=== PATIENT | female | born 1985 | race Caucasian/White ===

== ENCOUNTER 2022-02-25 12:36 | Outpatient (REF) | payer BC, SELFPAY ==
[2022-02-25 14:13] LABS: Estimated Average Glucose 105 mg/dL; Hemoglobin A1c % 5.3 %
[2022-02-25 14:45] LABS: Alanine Aminotransferase 13 U/L (0-31); Albumin Level 4.1 g/dL (3.5-5.0); Alkaline Phosphatase 58 U/L (39-117); Anion Gap 14 (12-20); Aspartate Amino Transferase 13 U/L (5-31); Bilirubin Total 0.5 mg/dL (0.0-1.0); Blood Urea Nitrogen 10 mg/dL (9-16); Calcium 9.2 mg/dL (8.4-10.2); Carbon Dioxide 21 mmol/L (22-29); Chloride 107 mmol/L (96-108); Cholesterol 181 mg/dL; Estimated Glomerular Filt Rate > 60; Glucose Random 85 mg/dL (60-115); HDL Cholesterol 60 mg/dL; LDL Cholesterol Calculated 110 mg/dl; Sodium 138 mmol/L (135-145); Total Protein 6.4 g/dL (6.5-8.0); Triglycerides 56 mg/dL
[2022-02-25 14:57] LABS: TSH reflex Free T4 1.29 uIU/mL (0.32-4.0)
[2022-02-25 15:16] LABS: HCG Quantitative 20747 mIU/mL
[2022-02-27 03:43] LABS: LDL Cholesterol Direct 107 mg/dL (<100)
== END 2022-02-25 12:37 | disposition home or self-care (01) ==
LOC: HO.WFDLDS 12:36
PROVIDERS: Visit Provider Family Medicine
DX: Z00.00 Encounter for general adult medical examination without abnormal findings (principal); R73.01 Impaired fasting glucose; Z86.32 Personal history of gestational diabetes
CPT/HCPCS: 36415; 80053; 80061; 83036; 83721; 84443; 84702

== ENCOUNTER 2023-05-27 08:20 | Outpatient (AMB) | payer BC, SELFPAY ==
[2023-05-27 08:31] VITALS: BP 124/64; PULSE 80; RESP 13; TEMP 36.6; O2SAT 99; BMI 26.9
--- NOTE | 2023-05-27 08:31 | MHC.PC.OV ---
Vital Signs 05/27/23 08:31 Height 5 ft 4 in Weight 157 lb BMI 26.9 BP 124/64 Blood Pressure Location Lt brachial Position Sitting Respiration 13 Pulse 80 Pulse Source Pulse Oximeter Temp 97.9 F Temp Source Temporal Artery Scan Pulse Oximetry (%) 99 Oxygen Delivery Method Room Air Intake Visit Reasons: Physical exam Intake Note: Patient states that she would like to be referred to get a colonoscopy due to new family history showing signs of colon cancer. 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 Accompanied by: Self / Same As Patient Allergies sulfabenzamide Allergy (Severe, Verified 05/27/23 08:52) Hives Medication List - Last Reconciled 05/27/23 by Ama Hollis CNP albuterol sulfate 90 mcg/actuation (ProAir HFA) 2 puffs inhalation Q4-6H PRN 30 days vit-iron fum-folic ac 66 mg iron- 1 mg tabs PO Tobacco use date assessed: 05/27/23 Dental Screening Dental Screen Date: 05/27/23 Did you have a dental visit in the last 12 months?: Yes Did you have a dental problem in the last 6 months where you did not have access to dental care?: No Was dental information given to patient?: Patient has dentist HPI HPI Comments History of Present Illness Details 37-year-old female presents for an extended physical exam Her last blood work/CBC was in February 2022 She has past medical history significant for anxiety in exercise induced asthma She notes that she experiences regular anxiousness and worrying that does not interferes with her daily life activities. She states that she does not take anxiety medications or sees a therapist or psychiatrist She offers no complaints and denies acute symptoms at this time She notes that she sexually active, in a monogamous relationship, and has no concerns for STD Her last Pap smear test was 1-2 years ago with [facility] remittance clerk: normal She notes that her brother who is 41 years old was recently diagnosed with colon cancer and was recommended for every family member to get a colonoscopy She states that her father was diagnosed with colon cancer in 10/2022 and shortly She notes that she has never had a mammogram done [facility] Medical History History of miscarriage Surgical History History of D&C History of bilateral breast reduction surgery Family History Brother Colon cancer Father Prostate cancer Social History Housing: House Patient Tobacco Use Status: Never used Tobacco e-Cigarette/Vaping Use: Never Used Second Hand Smoke Exposure: No service: No Current occupational status: employed Current occupation: [employer] services Current occupational exposures/hazards: No Cognitive needs: No Hearing needs: No Vision needs: No Questionnaire PHQ-9 Over the last 2 weeks, how often have you been bothered by any of the following problems? 1. Little interest or pleasure in doing things: not at all 2. Feeling down, depressed, or hopeless: not at all 3. Trouble falling or staying asleep, or sleeping too much: not at all 4. Feeling tired or having little energy: not at all 5. Poor appetite or overeating: not at all 6. Feeling bad about yourself - or that you are a failure or have let yourself or your family down: not at all 7. Trouble concentrating on things, such as reading the newspaper or watching television: not at all 8. Moving or speaking so slowly that other people could have noticed. Or the opposite - being so fidgety or restless that you have been moving around a lot more than usual: not at all 9. Thoughts that you would be better off or of hurting yourself in some way: not at all Total score: 0 Depression Screening Interpretation: Negative Depression Screening Done: Yes 01773 - PHQ-9 Billing: Yes Source: Developed by Drs. Colten Lew, Velma Jeter, Skip Flores and colleagues, with an educational henry from [employer]. Thrive Questionnaire Date Thrive assessed: 05/27/23 I am a: Patient What is your living situation today?: I have a steady place to live Within the past 12 months, did the food you bought not last and you didn't have the money to get more?: Never true Within the past 12 months, did you worry whether your food would run out before you got money to buy more?: Never true Do you have trouble paying for medicines?: No Do you have trouble getting transportation to medical appointments?: No Do you have trouble paying your heating and electricity bill?: No Do you have trouble taking care of your child, family member or friend?: No Do you have trouble with day-to-day activities such as bathing, preparing meals, shopping, managing finances, etc.?: No Are you currently unemployed and looking for a job?: No Are you interested in more education?: No Please select the resources that you would like help with: None Currently or been in a relationship where the following occur: no concerns reported AUDIT C Alcohol Use Questionnaire (AUDIT-C) 1. How often do you have a drink containing alcohol?: 2-3 times a week 2. How many drinks containing alcohol do you have on a typical day when you are drinking?: 1 or 2 3. How often do you have six or more drinks on one occasion?: Less than monthly Total Score: 4 ANN-7 AMB Questionnaire ANN-7 Date ANN - 7 assessed: 05/27/23 Feeling nervous, anxious, or on edge: 1 = Several days Not being able to stop or control worryin = Several days Worrying too much about different things: 1 = Several days Trouble relaxin = Nearly every day Being so restless that it is hard to sit still: 3 = Nearly every day Becoming easily annoyed or irritable: 2 = More than half the days Feeling afraid as if something awful might happen: 1 = Several days Total ANN-7 score (0-4 normal; 5-9 mild; 10-14 moderate; 15-21 severe): 12 Source: Developed by Drs. Colten Lew, Velma Jeter, Skip Flores and colleagues, with an educational henry from [employer]. ANN-7 Assessment Billing ANN-7 Assessment Tool: ANN-7 Assessment 29331 Review of Systems Const Details: Denies chills, Denies fatigue, Denies fever(s), Denies headache(s) and Denies weakness HEENT Denies change in vision, Denies dizziness, Denies headache(s), Denies hearing loss, Denies nasal congestion, Denies sinus pain, Denies sinus pressure and Denies sore throat Card Denies chest pain, Denies lightheadedness, Denies dyspnea and Denies other (palpitations) Resp Denies cough, Denies dyspnea and Denies wheezing GI Denies abdominal pain, Denies melena, Denies hematochezia, Denies change in bowel habits, Denies dyspepsia and Denies nausea Denies hematuria and Denies dysuria Musc Denies abnormal gait, Denies myalgias, Denies arthralgias, Denies numbness and Denies tingling Skin/Breast Denies rash, Denies unusual bruising and Denies wounds Neuro Denies abnormal gait, Denies dizziness, Denies headache(s), Denies memory loss, Denies numbness, Denies Sensory deficit (Neuro), Denies tingling and Denies weakness Psych Denies anxiety, Denies depression and Denies memory loss Endo Denies cold intolerance, Denies fatigue, Denies heat intolerance, Denies polydipsia and Denies polyuria Oswaldo/Lymph Denies easy bleeding and Denies easy bruising Aller/Immun Denies wheezing Physical exam (Primary Care) Vital Signs: Last Vital Signs Temp 97.9 F 05/27/23 08:31 Pulse 80 05/27/23 08:31 Resp 13 05/27/23 08:31 BP 124/64 05/27/23 08:31 Pulse Ox 99 05/27/23 08:31 Oxygen Delivery Method Room Air 05/27/23 08:31 BMI result Body Mass Index 26.9 Tobacco/Smoking Status: Tobacco use Status Tobacco use date assessed 05/27/23 05/27/23 08:42 Patient Tobacco Use Status Never used Tobacco 05/27/23 08:42 e-Cigarette/Vaping Use Never Used 05/27/23 08:42 PHQ-9: PHQ-9 Score PHQ-9: Total score 0 05/27/23 08:42 Depression Screening Interpretation: Negative Thrive Assessment: Date of Thrive Assessment Date Thrive assessed 05/27/23 05/27/23 08:42 Currently or been in a relationship where the following occur: no concerns reported Const Other: General: no acute distress, well developed, alert and awake Nutritional Appearance: well nourished Orientation/consciousness: patient oriented x3 HENMT Head: Yes normocephalic and Yes atraumatic Ears: hearing grossly normal bilaterally and TM's normal bilaterally General nose exam: Normal external nose present and Normal nares present Mouth: Normal oral and palatal mucosa present and moist mucous membranes Teeth and gingiva: dentition normal Throat: Yes oropharynx normal Eyes Pupils: Equal, round and reactive pupils present and Pupil accommodation reflex normal EOM: EOMs intact bilaterally Neck Neck: Yes normal visual inspection, Yes no lymphadenopathy and Yes trachea midline Thyroid: Thyroid normal Carotids: no bruits Lymphatic: no lymphadenopathy noted Chest Chest palpation & inspection: normal inspection of the chest Resp Effort & Inspection: normal respiratory effort Auscultation: clear to auscultation bilaterally Cardio Rate: regular rate Rhythm: regular rhythm Heart sounds: S1 normal heart sound present, S2 normal heart sound present, no gallops, no murmurs and no rubs Bruits: no abdominal aortic bruits and no carotid bruits GI Palpation (GI): No Abdominal aortic bruit present, Soft to palpation, nontender, No hepatosplenomegaly present and No Rebound tenderness present Auscultation: normal bowel sounds General: Yes no CVA tenderness Back/Spine/Pelvis Back: no CVA tenderness Cervical Spine: cervical ROM normal and No Cervical spine tenderness Thoracic/Lumbar Spine: thoraco-lumbar ROM normal, No pain with thoraco-lumbar ROM, No thoracic spinal tenderness and No lumbar spinal tenderness Skin General: warm and dry. Normal skin color. Normal skin turgor Lesions: no lesions Rashes: no rashes Trauma: no lacerations or abrasions Wounds: no wounds Nails: normal Neuro General: patient oriented x3, gait normal and CN's II-XI intact bilaterally Cranial nerves: Yes Equal, round and reactive pupils present Cognition (Neuro): normal cognition Gait exam (Neuro): Normal gait present Motor exam (neuro): 5/5 motor strength present throughout Sensory Exam: No Sensory deficit (Neuro) Deep tendon reflexes (DTR's): Right patellar reflex intensity grade: 2+ and Left patellar reflex intensity grade: 2+ Extrem General: Yes normal to inspection, No edema and No calf tenderness Psych Appearance: grossly normal Affect: normal affect Attitude: cooperative Thought process: Normal thought process present Assessment and Plan Assessment & Plan (1) Adult general medical exam: Code(s): Z00.00 - Encounter for general adult medical examination without abnormal findings Plan: Normal extended physical exam of a 37-year-old female No significant physical restrictions or limitations noted Advised to get routine fasting blood work done and schedule a telehealth visit for labs review Follow-up with symptoms or concerns Verbalized understanding and agreed with plan (2) Anxiety: Code(s): F41.9 - Anxiety disorder, unspecified Plan: ANN-7 score reveals moderate anxiety PHQ-9 score is normal She notes that her anxiety symptoms are regular and does not interfere with her normal functioning Declines psychotherapy or medication treatment Routine exercise encouraged Deep breathing/relaxation techniques instructed and encouraged Follow-up with worsening or new symptoms Verbalized understanding and agreed with treatment plan. (3) Colon cancer screening: Code(s): Z12.11 - Encounter for screening for malignant neoplasm of colon Plan: Her 41-year-old brother was recently diagnosed with colon cancer Referred to Gastroenterology for a colonoscopy (4) Breast cancer screening by mammogram: Code(s): Z12.31 - Encounter for screening mammogram for malignant neoplasm of breast Plan: Mammogram ordered due to family history of colon and prostate cancer (5) Laboratory tests ordered as part of a complete physical exam (CPE): Code(s): Z00.00 - Encounter for general adult medical examination without abnormal findings Plan: Fasting labs ordered as part of a complete physical exam. Advised to fast for at least 10 hours before getting labs drawn. May drink water Verbalized understanding and agreed with treatment plan. Orders: Orders Complete Blood Count Auto Diff Today Z00.00 - Encounter for general adult medical examination without abnormal findings Comprehensive [place]. Panel Fast Today Z00.00 - Encounter for general adult medical examination without abnormal findings Lipid Panel Today Z00.00 - Encounter for general adult medical examination without abnormal findings TSH reflex Free T4 Today Z00.00 - Encounter for general adult medical examination without abnormal findings UA CC w/rflx Micro + Cult Today Z00.00 - Encounter for general adult medical examination without abnormal findings MM screening mammo BI Today Z12.31 - Encounter for screening mammogram for malignant neoplasm of breast Referrals Gastroenterology Referral Z12.11 - Encounter for screening for malignant neoplasm of colon Coding Level of Care Code Est Pt Prev Care 18-39y([id number]) Diagnoses Adult general medical exam Z00.00 Anxiety F41.9 Colon cancer screening Z12.11 Breast cancer screening by mammogram Z12.31 Laboratory tests ordered as part of a complete physical exam (CPE) Z00.00 Additional Codes ANN-7 Assessment Billing - ANN-7 Assessment Tool: ANN-7 Assessment [id number] ([id number])
== END 2023-05-27 09:12 | disposition home or self-care (01) ==
PROVIDERS: PCP Family Medicine; Visit Provider Nurse Practitioner Family
DX: Z00.00 Encounter for general adult medical examination without abnormal findings (principal); F41.9 Anxiety disorder, unspecified
CPT/HCPCS: 99395

== ENCOUNTER 2023-05-27 09:13 | Outpatient (REF) | payer BC, SELFPAY ==
[2023-05-27 11:13] LABS: MANUAL DIFF FLAG NO
[2023-05-27 11:18] LABS: Basophils Percent Auto 0.5 % (0-2); Eosinophils Absolute Auto 0.2 X10*3/uL (0.0-0.4); Eosinophils Percent Auto 2.3 % (0-4); Hematocrit 42.8 % (37.0-47.0); Hemoglobin 14.1 g/dl (12.0-16.0); Imm Gran Abs Auto 0.01 X10*3/uL (0.00-0.03); Imm Gran Pct Auto 0.2 % (0.0-0.4); Lymphocytes Absolute Auto 1.8 X10*3/uL (1.2-4.9); Lymphocytes Percent Auto 27.6 % (20-40); Mean Corpuscular HGB Conc 32.9 g/dl (31.0-35.0); Mean Corpuscular Hemoglobin 30.5 pg (27.0-33.0); Mean Corpuscular Volume 92.4 fL (80.0-98.0); Mean Platelet Volume 10.5 fL (9.4-12.3); Monocytes Absolute Auto 0.4 X10*3/uL (0.1-1.2); Monocytes Percent Auto 5.7 % (2-11); Neutrophils Absolute Auto 4.1 x10*3/uL (2.0-8.3); Neutrophils Percent Auto 63.7 % (45-73); Platelet Count 285 X10*3/uL (160-400); Red Blood Count 4.63 X10*6/uL (4.20-5.50); White Blood Count 6.5 X10*3/uL (4.8-10.8)
[2023-05-27 11:33] LABS: Appearance Urine Turbid; Color Urine Red; Glucose Urine UA Negative (Negative); Leukocyte Esterase Urine Moderate (2+) (Negative); Nitrite Urine Negative (Negative); PH 6.5 (5.0-9.0); UMIC TRIGGER UACC YES; Urine Blood Large (3+) (Negative); Urine Ketones Negative (Negative); Urine Protein 100 (2+) mg/dL (Neg-Trace)
[2023-05-27 11:41] LABS: Alanine Aminotransferase 15 U/L (0-31); Albumin Level 4.2 g/dL (3.5-5.0); Alkaline Phosphatase 65 U/L (39-117); Anion Gap 9 (12-20); Aspartate Amino Transferase 14 U/L (5-31); Bilirubin Total 0.8 mg/dL (0.0-1.0); Blood Urea Nitrogen 12 mg/dL (9-16); Calcium 9.4 mg/dL (8.4-10.2); Carbon Dioxide 28 mmol/L (22-29); Chloride 107 mmol/L (96-108); Cholesterol 191 mg/dL (<200); Estimated Glomerular Filt Rate > 60; Glucose Fasting 98 mg/dL (60-99); HDL Cholesterol 71 mg/dL (>40); LDL Cholesterol Calculated 108 mg/dL (<100); Potassium 4.2 mmol/L (3.3-5.1); Sodium 140 mmol/L (135-145); Total Protein 6.9 g/dL (6.5-8.0); Triglycerides 64 mg/dL (<150)
[2023-05-27 11:46] LABS: TSH reflex Free T4 1.16 uIU/mL (0.32-4.0)
[2023-05-27 11:59] LABS: Bacteria Urine 2+ (None Seen); Hyaline Casts Urine 0-2 /LPF (0-2); RBC Urine >20 /HPF (0-2); Squamous Epithelial Cell Urine >20 /HPF (0-2); UACC Culture Trigger YES; WBC Urine >50 /HPF (0-5)
== END 2023-05-27 09:14 | disposition home or self-care (01) ==
LOC: HO.WFDLDS 09:13
PROVIDERS: Visit Provider Nurse Practitioner Family
DX: Z00.00 Encounter for general adult medical examination without abnormal findings (principal); R82.90 Unspecified abnormal findings in urine
CPT/HCPCS: 36415; 80053; 80061; 81001; 84443; 85025; 87086

== ENCOUNTER 2023-06-09 15:44 | Outpatient (AMB) | payer BC, SELFPAY ==
--- NOTE | 2023-06-09 15:42 | MHC.PC.OV ---
Intake Visit Reasons: f/u labs review Office Services Coordinator Required: No Allergies sulfabenzamide Allergy (Severe, Verified 06/09/23 15:43) Hives Tobacco use date assessed: 05/27/23 HPI HPI Comments History of Present Illness Details This is a telephonic telehealth visit for review of recent blood work. Patient established care 2 weeks ago and had routine labs ordered. She offers no complaints and denies acute symptoms. [facility] Medical History History of miscarriage Surgical History History of D&C History of bilateral breast reduction surgery Family History Brother Colon cancer Father Prostate cancer Social History Housing: House Patient Tobacco Use Status: Never used Tobacco e-Cigarette/Vaping Use: Never Used Second Hand Smoke Exposure: No service: No Current occupational status: employed Current occupation: [employer] services Current occupational exposures/hazards: No Cognitive needs: No Hearing needs: No Vision needs: No Questionnaire Thrive Questionnaire Date Thrive assessed: 05/27/23 ANN-7 AMB Questionnaire ANN-7 Date ANN - 7 assessed: 05/27/23 Source: Developed by Drs. Colten Lew, Velma Jeter, Skip Flores and colleagues, with an educational henry from [employer]. Review of Systems Const Details: Const Denies chills, Denies fatigue, Denies fever(s), Denies headache(s) and Denies weakness ENT Denies dizziness and Denies headache(s) Card Denies chest pain, Denies lightheadedness, Denies dyspnea and Denies other (Palpitations) Resp Denies cough, Denies dyspnea, Denies wheezing and Denies other ( shortness of breath) GI Denies abdominal pain, Denies melena, Denies hematochezia, Denies change in bowel habits, Denies dyspepsia and Denies nausea Denies hematuria and Denies dysuria Musc Denies abnormal gait, Denies myalgias, Denies arthralgias, Denies numbness and Denies tingling Skin/Breast Denies rash, Denies unusual bruising and Denies wounds Neuro Denies abnormal gait, Denies dizziness, Denies headache(s), Denies memory loss, Denies numbness, Denies Sensory deficit (Neuro), Denies tingling and Denies weakness Psych Denies anxiety, Denies depression, Denies memory loss Endo Denies cold intolerance, Denies fatigue, Denies heat intolerance, Denies polydipsia and Denies polyuria Aller/Immun Denies wheezing Physical exam (Primary Care) Tobacco/Smoking Status: Tobacco use Status Tobacco use date assessed 05/27/23 06/09/23 15:44 Patient Tobacco Use Status Never used Tobacco 06/09/23 15:44 e-Cigarette/Vaping Use Never Used 06/09/23 15:44 Thrive Assessment: Date of Thrive Assessment Date Thrive assessed 05/27/23 06/09/23 15:44 Const Other: Tele health visit. No physical exam Telehealth Telehealth Location of provider rendering services: practice address Location of patient: address on file Patient Identification confirmed using: Name, : Yes Telehealth method: voice only Patient verbally consented to treatment: Yes Patient verbally consented to billing insurance company: Yes Patient informed of any privacy concerns related to visit: Yes Minutes spent on Phone/Video with Pt.: 10 Assessment and Plan Assessment & Plan (1) Abnormal finding on urinalysis: Code(s): R82.90 - Unspecified abnormal findings in urine Plan: Recent labs reviewed with patient CBC, CMP, lipid panel, and TSH are unrevealing Urinalysis is positive for protein, blood, leukocyte, and bacteria. Urine culture was negative for UTI Patient notes that she was on her menstrual cycle at the time the urine specimen was collected and she also had vaginal yeast infection for which she was taking Diflucan. She denies current symptoms at this time Continue with current treatment regimen Advised to schedule her next and physical with her PCP Return sooner with symptoms or concerns Verbalized understanding and agreed with treatment plan Coding Level of Care Code Tele Est Pt Level 2 (93025) Diagnoses Abnormal finding on urinalysis R82.90
== END 2023-06-09 16:56 | disposition home or self-care (01) ==
LOC: HO.HMGFM 15:45
PROVIDERS: PCP Family Medicine; Visit Provider Nurse Practitioner Family
DX: R82.90 Unspecified abnormal findings in urine (principal)
CPT/HCPCS: 99441

== ENCOUNTER 2023-07-14 08:12 | Outpatient (REF) | payer BC, SELFPAY ==
--- NOTE | ~2023-07-14 | MM_ITS ---
EXAMINATION: MM SCREENING DIGITAL BREAST TOMOSYNTHESIS, BILATERAL CLINICAL INFORMATION: Screening. Asymptomatic. COMPARISON: Mammography: This is a baseline study. TECHNIQUE: Digital breast tomosynthesis is performed in both the craniocaudal and mediolateral oblique views along with computer-aided detection (CAD). Synthesized 2D images are generated from the tomosynthesis. FINDINGS: There are scattered areas of fibroglandular density (ACR BI-RADS breast composition Category b). There are no significant masses, abnormal calcifications, or other abnormalities. MM/MM tomosynthesis screening BI IMPRESSION: No mammographic evidence of malignancy. ASSESSMENT: BI-RADS BI-RADS 1 - Negative RECOMMENDATION: Routine annual mammography screening. 1 year F/U This examination should not preclude the clinical evaluation of a suspicious palpable abnormality. This patient's information was entered into a reminder system with a target due date for their next mammogram.
== END 2023-07-14 08:13 | disposition home or self-care (01) ==
LOC: HO.MAMMO 08:12
PROVIDERS: PCP Family Medicine; Visit Provider Nurse Practitioner Family
DX: Z12.31 Encounter for screening mammogram for malignant neoplasm of breast (principal)
CPT/HCPCS: 77063; 77067

== ENCOUNTER → 2023-07-14 08:15 | Outpatient (BNV) | payer BC, SELFPAY | PROVIDERS: PCP Family Medicine; Visit Provider Radiology Diagnostic Radiology | DX: Z12.31 Encounter for screening mammogram for malignant neoplasm of breast (principal) | CPT/HCPCS: 77063; 77067 ==

== ENCOUNTER 2023-08-18 07:18 | Outpatient (AMB) | payer BC, SELFPAY ==
--- NOTE | 2023-08-18 07:38 | MHC.OFFVIS ---
Intake Vital Signs 08/18/23 07:51 Height 5 ft 4.5 in Weight 158 lb BMI 26.7 BP 90/72 Blood Pressure Location Lt brachial Position Sitting Pulse 80 Intake Visit Reasons: Colonoscopy Screening Intake Note: Patient new consult for 1st pre Colonoscopy screening. Patient denies any GI issues. Patient have family hx of Colon CA/Brother. 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 Father last year prostate cancer. She is following with pcp- she hs not had genetic testing No N/V/ D/ abdominal pain- fever or chills PFSH Medical History History of miscarriage Surgical History History of D&C History of bilateral breast reduction surgery Family History Brother Colon cancer Father Prostate cancer Social History Housing: House Patient Tobacco Use Status: Never used Tobacco e-Cigarette/Vaping Use: Never Used Second Hand Smoke Exposure: No service: No Current occupational status: employed Current occupation: [employer] services Current occupational exposures/hazards: No Cognitive needs: No Hearing needs: No Vision needs: No Review of Systems Const All systems reviewed & are unremarkable except as noted in HPI and below Card Denies chest pain and Denies dyspnea Resp Denies dyspnea GI Denies abdominal pain, Denies change in bowel habits, Denies heartburn, Denies nausea and Denies vomiting Reports difficulty conceiving Physical Exam Vital Signs: Last Vital Signs Pulse 80 08/18/23 07:51 BP 90/72 08/18/23 07:51 BMI result Body Mass Index 26.7 Const General: cooperative, healthy appearing and no acute distress Orientation/consciousness: patient oriented x3 Limitations: no limitations Eyes Sclerae: sclerae normal Resp Effort & Inspection: normal respiratory effort and able to speak in complete sentences Auscultation: clear to auscultation bilaterally, no rales, no rhonchi and no wheezes Cardio Rate: regular rate Rhythm: regular rhythm Heart sounds: S1 normal heart sound present and S2 normal heart sound present GI Palpation (GI): Soft to palpation and nontender Auscultation: normal bowel sounds Skin General skin exam: no rashes or lesions noted Neuro General: patient oriented x3 Extrem General: Yes full ROM Psych Appearance: grossly normal and well kempt Mental Status: mental status grossly normal Speech and movement: Normal speech and movement present and Clear speech present Affect: normal affect Attitude: cooperative Thought process: Normal thought process present Thought content: Normal thought content present Insight: Good insight present (Psych) Judgement: Good judgement present (Psych) Assessment & Plan Assessment & Plan (1) Family history of malignant neoplasm of colon in relative diagnosed when younger than 50 years of age: Comment: Brother- @ 41-radiation/ chemo/ surgery Code(s): Z80.0 - Family history of malignant neoplasm of digestive organs Plan colonoscopy for family hx- Orders: Orders Colonoscopy - GI Use Only Today Z80.0 - Family history of malignant neoplasm of digestive organs Medications: New bisacodyl (Dulcolax (bisacodyl)) Day before procedure @ 12 noon Take 4 tablets by mouth followed by large glass of water 20 mg (4 x 5 mg) PO ONCE 1 day PRN 4 tabs 0RF colonoscopy prep Z12.11 - Encounter for screening for malignant neoplasm of colon polyethylene glycol 3350 (Miralax) Take as directed by mouth the day before your procedure. 238 grams PO ONCE 1 day PRN 238 grams 0RF laxative effect Patient Instructions: A 38 y/o very pleasant female- family history colon cancer- discussed procedure- importance of screening at this time as well- @ 5 years - sooner if indicted. MG pre- reviewed it given- Call with concerns- Coding Level of Care Code New Pt Level 3 (35365) Diagnoses Family history of malignant neoplasm of colon in relative diagnosed when younger than 50 years of age Z80.0 Time Spent (min) 30
[2023-08-18 07:51] VITALS: BP 90/72; PULSE 80; BMI 26.7
== END 2023-08-18 08:31 | disposition home or self-care (01) ==
PROVIDERS: PCP Family Medicine; Visit Provider Physician Assistant
DX: Z80.0 Family history of malignant neoplasm of digestive organs (principal)
CPT/HCPCS: 99203

== ENCOUNTER → 2023-08-18 07:18 | Outpatient (BNVA) | payer BC, SELFPAY | PROVIDERS: PCP Family Medicine; Visit Provider Physician Assistant ==

== ENCOUNTER 2024-01-12 08:05 | Outpatient (AMB) | payer BC, SELFPAY ==
--- NOTE | 2024-01-12 08:05 | MHC.OFFWIV ---
Intake Vital Signs 01/12/24 08:12 Height 5 ft 4.5 in Weight 155 lb BMI 26.2 BP 122/64 Blood Pressure Location Lt brachial Position Sitting Pulse 107 H Pulse Source Pulse Oximeter Pulse Oximetry (%) 96 Oxygen Delivery Method Room Air Intake Visit Reasons: Strep throat Intake Note: Patient went to [facility] urgent care on 01/08/24 and tested positive for strep, was given penicillin and has not been able to eat, sleep, or drink fluids without pain. Patient is taking ibuprofen or pain and this wears off quickly. Patient Tobacco Use Status: Never used Tobacco Associate Curator Required: No Accompanied by: Self / Same As Patient Allergies sulfabenzamide Allergy (Severe, Verified 01/12/24 08:48) Hives Medication List - Last Reconciled 01/12/24 by LEA RayaP- albuterol sulfate 90 mcg/actuation (ProAir HFA) 2 puffs inhalation Q4-6H PRN 30 days bisacodyl (Dulcolax (bisacodyl)) 20 mg (4 x 5 mg) PO ONCE PRN 1 day polyethylene glycol 3350 (Miralax) 238 grams PO ONCE PRN 1 day vit-iron fum-folic ac 66 mg iron- 1 mg tabs PO HPI HPI Comments History of Present Illness Details 38-year-old female here today with complaints of strep throat. Reports symptoms of sore throat that started last week. She was seen at an urgent care center on Friday and given Pen VK 500 She has been taking as directed. However her symptoms have worsened. She now feels like she is choking on her spit, having a hard time swallowing, unable to eat or drink, has lost 4 lb. Repeat strep positive today Awake alert ill-appearing, uncomfortable and crying Sclera and conjunctiva clear bilat TM intact and clear bilat MM dry, bilat tonsillar edema, L>R with uvula deviation to the L, narrowing of airway related to edema, muffled, hot potatoe voice Tachycardic LS CTAB Plan: Given exam today, plan for ED eval and tx. She is able to transport via private vehicle. Advised NPO. Go to [facility] ED. [facility], [facility] Medical History History of miscarriage Surgical History History of D&C History of bilateral breast reduction surgery Family History Brother Colon cancer Father Prostate cancer Social History Housing: House Patient Tobacco Use Status: Never used Tobacco e-Cigarette/Vaping Use: Never Used Second Hand Smoke Exposure: No service: No Current occupational status: employed Current occupation: Custodial services Current occupational exposures/hazards: No Cognitive needs: No Hearing needs: No Vision needs: No Physical Exam Vital Signs: Last Vital Signs Pulse 107 H 01/12/24 08:12 BP 122/64 01/12/24 08:12 Pulse Ox 96 01/12/24 08:12 Oxygen Delivery Method Room Air 01/12/24 08:12 BMI result Body Mass Index 26.2 Results AMB Rapid Strep AMB Rapid Strep Positive Last Edit by Eva Ramsey CMA on 01/12/24 08:28 Results Reviewed Results Reviewed: Laboratory Last Values Strep Scn Rapid Clinic Positive 01/12/24 08:26 Assessment & Plan Assessment & Plan (1) Strep pharyngitis: Code(s): J02.0 - Streptococcal pharyngitis Plan: . (2) Deviation of uvula to left: Code(s): K13.79 - Other lesions of oral mucosa Plan: . Plan Total time spent caring for the patient today was 30 minutes. This includes time spent before the visit reviewing the chart, time spent during the visit, and time spent after the visit on documentation This note is constructed using voice recognition software. While every effort has been made to ensure accuracy in platform consultant, still errors may have been included Sometimes, these errors may affect the content or meaning of the given sentence . Orders: Orders AMB Rapid Strep Screen Today J02.9 - Acute pharyngitis, unspecified Patient Instructions: Patient seen today, I am concerned for a peritonsillar abcess (L) given exam today, hot potato voice. Please eval and tx. GAGE Thanks Coding Level of Care Code Est Pt Level 4 (67468) Diagnoses Strep pharyngitis J02.0 Deviation of uvula to left K13.79
[2024-01-12 08:12] VITALS: BP 122/64; PULSE 107; O2SAT 96; BMI 26.2
== END 2024-01-12 08:41 | disposition home or self-care (01) ==
PROVIDERS: PCP Family Medicine; Visit Provider Nurse Practitioner Family
DX: J02.0 Streptococcal pharyngitis (principal); K13.79 Other lesions of oral mucosa; J02.9 Acute pharyngitis, unspecified
CPT/HCPCS: 87880; 99214

== ENCOUNTER 2024-01-16 13:06 | Day surgery (SDC) | payer BC, SELFPAY ==
--- NOTE | 2024-01-15 10:48 | P.CONAN_ITS ---
Documented by User: Umu Rodriguez NP 01/15/24 10:48 HPI - Anesthesia Eval Consult details Narrative: 38yo F for Colonoscopy PMFSH Active Problems Active Problems: All Active Problems Deviation of uvula to left (Acute) Strep pharyngitis (Acute) Family history of malignant neoplasm of colon in relative diagnosed when younger than 50 years of age (Acute) Abnormal finding on urinalysis (Acute) Breast cancer screening by mammogram (Acute) Colon cancer screening (Acute) Laboratory tests ordered as part of a complete physical exam (CPE) (Acute) Acute pain of both ears (Acute) Elevated blood pressure reading without diagnosis of hypertension (Acute) Anxiety (Acute) Incidental (Acute) Screening for cervical cancer (Acute) Adult general medical exam (Acute) Exercise-induced asthma (Acute) Laboratory exam ordered as part of routine general medical examination (Acute) History of gestational diabetes (Acute) Hypoglycemia (Acute) Past Medical History Medical History History of miscarriage Family History Family History Brother Colon cancer Father Prostate cancer Surgical History Surgical History History of D&C History of bilateral breast reduction surgery Social History Social History Housing: House Patient Tobacco Use Status: Never used Tobacco e-Cigarette/Vaping Use: Never Used Second Hand Smoke Exposure: No Advance Directives: No Advance Directives Information Provided: Yes service: No Current occupational status: employed Current occupation: [employer] services Current occupational exposures/hazards: No Cognitive needs: No Hearing needs: No Vision needs: No Meds Allergies Allergy/AdvReac Type Severity Reaction Status Date / Time sulfabenzamide Allergy Severe Hives Verified 01/16/24 13:25 Home Medications ?Medication ?Instructions ?Recorded ?Confirmed ?Last Taken ?Type penicillin V potassium 500 mg mg 01/16/24 01/16/24 Unknown History tablet Assessment and Plan Assessment Anesthesia Assessment: Chart Reviewed Documented by User: Joan Palacios MD 01/16/24 13:32 [facility] Past Medical History Medical History History of miscarriage Family History Family History Brother Colon cancer Father Prostate cancer Family history of problems with anesthesia: No Surgical History Surgical History History of D&C History of bilateral breast reduction surgery History of Problems with Anesthesia: No Social History Social History Housing: House Patient Tobacco Use Status: Never used Tobacco e-Cigarette/Vaping Use: Never Used Second Hand Smoke Exposure: No Advance Directives: No Advance Directives Information Provided: Yes service: No Current occupational status: employed Current occupation: [employer] services Current occupational exposures/hazards: No Cognitive needs: No Hearing needs: No Vision needs: No Meds Allergies Allergy/AdvReac Type Severity Reaction Status Date / Time sulfabenzamide Allergy Severe Hives Verified 01/16/24 13:25 Home Medications ?Medication ?Instructions ?Recorded ?Confirmed ?Last Taken ?Type penicillin V potassium 500 mg mg 01/16/24 01/16/24 Unknown History tablet Exam Airway Mallampati Class: II TM Dist: >3cm Neck ROM: Full Heart: rrr Lungs: cta Assessment and Plan Assessment Anesthesia Assessment: Anesthesia Plan Discussed Final Anesthetic Review Family History of Problems with Anesthesia: No History of Problems with Anesthesia: No NPO: Yes ASA Class: II Final Preanesthetic Review: No Changes in Pt Med Stat, Meds/Allgs Chart Reviewed and Consent Obtained/Reviewed Patient Risk: Low Procedure Risk: Low Anesthetic Plan Anesthetic Plan: MAC: Disposition: Standard PACU
[2024-01-16 13:42] VITALS: BMI 25.5
[2024-01-16 13:49] VITALS: BP 114/77; PULSE 86; RESP 16; TEMP 37.6; O2SAT 96
[2024-01-16] MEDS: Lactated Ringers 1,000 ML 100 ML IVCONT (14:11)
[2024-01-16 14:19] LABS: UPreg QC Valid YES; Urine Pregnancy NEGATIVE (NEGATIVE)
--- NOTE | 2024-01-16 14:48 | MHC.SHP ---
Pre-Procedural Eval Section A - 24 Hr Update-Section A only Date of Service: 01/16/24 The patient is an INPATIENT: No The patient has been examined within 24 hours of the surgical procedure. The History & Physical has been completed within 30 days and I have reviewed it.: No Section B - Complete if H&P > 30 days Chief Complaint: Family history of malignant neoplasm of digestive Relevant Family History (Specify if Yes): Yes Relevant Social History: None Present Medications: see Short Stay Collaborative assessment Medical History: Significant History (History of miscarriage) History of Previous Operations: Relevant previous surgery/procedure and date(s) (History of D&C History of bilateral breast reduction surgery) Allergies: Allergies Allergy/AdvReac Type Severity Reaction Status Date / Time sulfabenzamide Allergy Severe Hives Verified 01/16/24 13:25 Review of Systems Sugical H&P ROS: Negative: Constitution, Cardiovascular, Respiratory and Gastrointestinal Exam Surgical H&P Exam: Normal: Heart, Normal: Lungs, Normal: Extremities and Normal: Abdomen Plan Diagnosis/Plan: Unchanged I have reviewed the history and physical and performed a pertinent physical examination on my patient. No changes have occurred unless specified. Time Spent With Patient Time: Total time managing care of this patient today ____ minutes.
[2024-01-16 15:45] VITALS: BP 108/70; PULSE 73; RESP 16; TEMP 36.3; O2SAT 99
--- NOTE | 2024-01-16 15:51 | P.OPN-COLO_ITS ---
Colonoscopy Operative Note Operative Note Date of Service: 01/16/24 Narrative: COLONOSCOPY TILL CECUM WITH SNARE POLYPECTOMY AND HEMOCLIP PLACEMENT Pre-op diagnosis: Colon cancer screening, first colonoscopy. Post-op diagnosis:? Colon polyps, Diverticulosis, hemorrhoids Endoscopist:? Cecile Melo MD Anesthesia:?MAC Consent: Indications for the procedure and potential complications of bleeding, perforation, reaction to medications and missed diagnosis were discussed with the patient and informed consent was obtained. Instrument: Olympus PCF H 190 L variable stiffness pediatric colonoscope Monitoring: Vital signs and clinical assessment, intermittent blood pressure monitoring, continuous EKG monitoring, Pulse oximetry and Carbon Dioxide monitoring were done throughout the procedure. Please see anesthesia flowsheet. Colon withdrawl time was 25 minutes. Procedure: The patient was placed in the left lateral decubitis position and pre-procedure medications were administered. After a digital rectal examination of the ano-rectum, the video colonoscope was inserted into the rectum and advanced through the colon to the cecum. The colonoscope was slowly withdrawn in a retrograde panoramic fashion and the colon mucosa was carefully examined including a retroflexed view of the rectum. Findings and interventions are described below. Procedure Difficulty: without difficulty - colon was long and tortuous and there was some loop formation Findings: Terminal Ileum: Not evaluated Cecum: Normal Ascending Colon: Normal Transverse Colon: A 10 - 12 mm flat polyp in the distal TC. Polyp was raised with 3 cc of [place] and removed with a stiff hot snare. Polypectomy site was closed with 1 hemoclip Descending Colon: Normal Sigmoid Colon: A 6-7 mm sessile polyp - removed with a cold snare. Moderate diverticulosis Rectum: Normal Ano-rectum: Small internal hemorrhoids Colon preparation: Good after copious irrigation. [place] Bowel Preparation Scale Right colon; 2 Transverse colon: 2 Left colon; 2 (0 = Unprepared colon segment with mucosa not seen due to solid stool that cannot be cleared. 1 = Portion of mucosa of the colon segment seen, but other areas of the colon segment not well seen due to staining, residual stool and/or opaque liquid. 2 = Minor amount of residual staining, small fragments of stool and/or opaque liquid, but mucosa of colon segment seen well. 3 = Entire mucosa of colon segment seen well with no residual staining, small fragments of stool or opaque liquid) Impression and Post Procedure Diagnosis: Colonoscopy Findings: One small and one medium sized polyps were removed Moderate diverticulosis seen in the sigmoid colon small hemorrhoids on retroflexed exam. Plan: Pt has a FU appointment on 01/29/24 with SPENCER Smith Repeat Colonoscopy in 3-5 years if polyps are adenomatous and 10 year if polyps are hyperplastic. Above findings were reviewed with the patient and relevant handouts were given and the discharge area.
[2024-01-16 16:00] VITALS: BP 105/69; PULSE 75; RESP 16; TEMP 36.1; O2SAT 100
== END 2024-01-16 16:29 | disposition home or self-care (01) ==
PROVIDERS: Nurse Practitioner; PCP Family Medicine; Visit Provider Internal Medicine Gastroenterology
PROC: 0DJD8ZZ Inspection of Lower Intestinal Tract, Via Natural or Artificial Opening Endoscopic (ICD-10-PCS; CPT 45378; principal; 2024-01-16 14:00)
DX: Z12.11 Encounter for screening for malignant neoplasm of colon (principal); D12.5 Benign neoplasm of sigmoid colon; K56.2 Volvulus; K57.30 Diverticulosis of large intestine without perforation or abscess without bleeding; K64.8 Other hemorrhoids; Z80.0 Family history of malignant neoplasm of digestive organs
CPT/HCPCS: 45385; 45381; 81025; 88305; J2704

== ENCOUNTER → 2024-01-16 13:06 | Outpatient (BNV) | payer BC, SELFPAY | PROVIDERS: PCP Family Medicine; Visit Provider Internal Medicine Gastroenterology | DX: Z12.11 Encounter for screening for malignant neoplasm of colon (principal); D12.5 Benign neoplasm of sigmoid colon; K57.30 Diverticulosis of large intestine without perforation or abscess without bleeding; K64.8 Other hemorrhoids | CPT/HCPCS: 45381; 45385 ==

== ENCOUNTER 2024-04-16 10:14 | Outpatient (AMB) | payer BC, SELFPAY ==
--- NOTE | 2024-04-16 10:23 | MHC.PC.OV ---
Vital Signs 04/16/24 10:28 Height 5 ft 4.5 in Weight 153 lb 8 oz BMI 25.9 BP 100/70 Blood Pressure Location Lt brachial Position Sitting Respiration 16 Pulse 78 Pulse Source Pulse Oximeter Temp 98.0 F Temp Source Oral Pulse Oximetry (%) 98 Oxygen Delivery Method Room Air Intake Visit Reasons: Foot pain Intake Note: patient here for foot pain. Online User Experience Strategist Required: No Is last menstrual period known: No (IVF) Post menopausal: No Patient : No Allergies sulfabenzamide Allergy (Severe, Verified 04/16/24 10:41) Hives Medication List - Last Reconciled 04/16/24 by Ama Hollis CNP [Co Q-10 ] fluconazole 150 mg PO Q3D 2 doses Tobacco use date assessed: 04/16/24 Dental Screening Dental Screen Date: 04/16/24 Did you have a dental visit in the last 12 months?: Yes Did you have a dental problem in the last 6 months where you did not have access to dental care?: No Was dental information given to patient?: Patient has dentist HPI HPI Comments History of Present Illness Details 38-year-old female presents with complaints of consistent pain between her right first and second toe for the past 3 weeks. She describes the pain as a pinch, worse with standing and wearing tong flip-flops. No tingling, numbness, or loss of sensation. She denies fall, injury or trauma. She has not taken any medication for pain. [facility] Medical History History of miscarriage Surgical History History of D&C History of bilateral breast reduction surgery Family History Brother Colon cancer Father Prostate cancer Social History Housing: House Patient Tobacco Use Status: Never used Tobacco e-Cigarette/Vaping Use: Never Used Second Hand Smoke Exposure: No Patient : No service: No Current occupational status: employed Current occupation: Assisted services Current occupational exposures/hazards: No Cognitive needs: No Hearing needs: No Vision needs: No Questionnaire Thrive Questionnaire Date Thrive assessed: 05/27/23 ANN-7 AMB Questionnaire ANN-7 Date ANN - 7 assessed: 05/27/23 Source: Developed by Drs. Colten Lew, Velma Jeter, Skip Flores and colleagues, with an educational henry from [employer]. Review of Systems Const Details: Const Denies chills, Denies fatigue, Denies fever(s), Denies headache(s) and Denies weakness ENT Denies dizziness and Denies headache(s) Card Denies chest pain, Denies lightheadedness, Denies dyspnea and Denies other (Palpitations) Resp Denies cough, Denies dyspnea, Denies wheezing and Denies other ( shortness of breath) GI Denies abdominal pain, Denies melena, Denies hematochezia, Denies change in bowel habits, Denies dyspepsia and Denies nausea Denies hematuria and Denies dysuria Musc Reports as per HPI Skin/Breast Denies rash, Denies unusual bruising and Denies wounds Neuro Denies abnormal gait, Denies dizziness, Denies headache(s), Denies memory loss, Denies numbness, Denies Sensory deficit (Neuro), Denies tingling and Denies weakness Endo Denies cold intolerance, Denies fatigue, Denies heat intolerance, Denies polydipsia and Denies polyuria Aller/Immun Denies wheezing Physical exam (Primary Care) Vital Signs: Last Vital Signs Temp 98.0 F 04/16/24 10:28 Pulse 78 04/16/24 10:28 Resp 16 04/16/24 10:28 BP 100/70 04/16/24 10:28 Pulse Ox 98 04/16/24 10:28 Oxygen Delivery Method Room Air 04/16/24 10:28 BMI result Body Mass Index 25.9 Tobacco/Smoking Status: Tobacco use Status Tobacco use date assessed 04/16/24 04/16/24 10:30 Patient Tobacco Use Status Never used Tobacco 04/16/24 10:25 e-Cigarette/Vaping Use Never Used 04/16/24 10:25 Thrive Assessment: Date of Thrive Assessment Date Thrive assessed 05/27/23 04/16/24 10:25 Const Other: General: no acute distress and well developed Nutritional Appearance: well nourished Orientation/consciousness: patient oriented x3 HENMT Head: Yes normocephalic and Yes atraumatic Eyes General: appearance normal, both eyes and all related structures Pupils: Equal, round and reactive pupils present EOM: EOMs intact bilaterally Resp Effort & Inspection: normal respiratory effort Auscultation: clear to auscultation bilaterally Cardio Rate: regular rate Rhythm: regular rhythm Heart sounds: S1 normal heart sound present, S2 normal heart sound present, no gallops, no murmurs and no rubs GI Palpation (GI): No Abdominal aortic bruit present, Soft to palpation, nontender, No hepatosplenomegaly present and No Rebound tenderness present Auscultation: normal bowel sounds General: Yes no CVA tenderness Extrem General: Yes normal to inspection, No edema and No calf tenderness Foot: Tenderness to palpation between the right 1st and 2nd toe. No erythema, edema, lesion, or overt injury or trauma Skin General: warm and dry. Normal skin color. Normal skin turgorl Neuro General: patient oriented x3, gait normal and no focal neuro deficit Cranial nerves: Yes Equal, round and reactive pupils present Cognition (Neuro): normal cognition Gait exam (Neuro): Normal gait present Sensory Exam: No Sensory deficit (Neuro) Psych Appearance: grossly normal Affect: normal affect Attitude: cooperative Thought process: Normal thought process present Coding Level of Care Code Est Pt Level 3 (66605) Diagnoses Contusion of bone T14.8XXA Assessment & Plan Assessment & Plan (1) Contusion of bone: Code(s): T14.8XXA - Other injury of unspecified body region, initial encounter Category: Medical Plan: Reports consistent pain between her right first and second toe for the past 3 week Tenderness to palpation between the right 1st and 2nd toe. No erythema, edema, lesion, or overt injury or trauma Likely contusion or inflammation May take Tylenol ibuprofen as needed Encouraged to use padding to the area and wear well-fitting shoes Cool compresses encouraged Follow-up with worsening or new symptoms Verbalized understanding and agreed with the plan
[2024-04-16 10:28] VITALS: BP 100/70; PULSE 78; RESP 16; TEMP 36.7; O2SAT 98; BMI 25.9
== END 2024-04-16 11:01 | disposition home or self-care (01) ==
PROVIDERS: PCP Family Medicine; Visit Provider Nurse Practitioner Family
DX: M79.671 Pain in right foot (principal); T14.8XXA Other injury of unspecified body region, initial encounter

== ENCOUNTER → 2024-04-16 10:14 | Outpatient (BNVA) | payer BC, SELFPAY | PROVIDERS: PCP Family Medicine; Visit Provider Nurse Practitioner Family ==

== ENCOUNTER 2024-05-13 13:27 | Outpatient (AMB) | payer BC, SELFPAY ==
--- NOTE | 2024-05-13 13:43 | A.OFFPC_ITS ---
Vital Signs 05/13/24 13:49 Height 5 ft 4.5 in Weight 155 lb 4 oz BMI 26.2 BP 100/70 Blood Pressure Location Rt brachial Position Sitting Respiration 16 Pulse 68 Pulse Source Pulse Oximeter Temp 98.2 F Temp Source Oral Pulse Oximetry (%) 98 Oxygen Delivery Method Room Air Intake Visit Reasons: Cough Intake Note: patient here c/o cough for 2 weeks Clinical Quality Analyst Required: No Is last menstrual period known: Yes Last menstrual period: 04/20/24 Post menopausal: No Patient : No Allergies sulfabenzamide Allergy (Severe, Verified 05/13/24 14:04) Hives Medication List - Last Reconciled 05/13/24 by Ama Hollis CNP [Co Q-10 ] Tobacco use date assessed: 05/13/24 Dental Screening Dental Screen Date: 05/13/24 Did you have a dental visit in the last 12 months?: Yes Did you have a dental problem in the last 6 months where you did not have access to dental care?: No Was dental information given to patient?: Patient has dentist HPI HPI Comments History of Present Illness Details 38-year-old female presents with complai nts of a predominantly dry cough for the past 2 weeks. Her cough has progressively gotten worsened. She has been taking Tussin DM with some relief. She took Mucinex today. She denies associated symptoms. No constitutional symptoms. No sick contacts. She has been using her rescue inhaler as needed. She has a history of exercise induced asthma. She requests a refill of her inhaler. [facility] Medical History History of miscarriage Surgical History History of D&C History of bilateral breast reduction surgery Family History Brother Colon cancer Father Prostate cancer Social History Housing: House Patient Tobacco Use Status: Never used Tobacco e-Cigarette/Vaping Use: Never Used Second Hand Smoke Exposure: No Patient : No service: No Current occupational status: employed Current occupation: [employer] services Current occupational exposures/hazards: No Cognitive needs: No Hearing needs: No Vision needs: No Female Reproductive History Menstrual Date of last menstrual period: 04/20/24 Questionnaire PHQ-9 Over the last 2 weeks, how often have you been bothered by any of the following problems? 1. Little interest or pleasure in doing things: not at all 2. Feeling down, depressed, or hopeless: not at all 3. Trouble falling or staying asleep, or sleeping too much: not at all 4. Feeling tired or having little energy: not at all 5. Poor appetite or overeating: not at all 6. Feeling bad about yourself - or that you are a failure or have let yourself or your family down: not at all 7. Trouble concentrating on things, such as reading the newspaper or watching television: not at all 8. Moving or speaking so slowly that other people could have noticed. Or the opposite - being so fidgety or restless that you have been moving around a lot more than usual: not at all 9. Thoughts that you would be better off or of hurting yourself in some way: not at all Total score: 0 Depression Screening Interpretation: Negative Depression Screening Done: Yes Source: Developed by Drs. Colten Lew, Velma Jeter, Skip Flores and colleagues, with an educational henry from [employer]. Thrive Questionnaire Date Thrive assessed: 05/27/23 I am a: Patient What is your living situation today?: I have a steady place to live Within the past 12 months, did the food you bought not last and you didn't have the money to get more?: Never true Within the past 12 months, did you worry whether your food would run out before you got money to buy more?: Never true Do you have trouble paying for medicines?: No Do you have trouble getting transportation to medical appointments?: No Do you have trouble paying your heating and electricity bill?: No Do you have trouble taking care of your child, family member or friend?: No Do you have trouble with day-to-day activities such as bathing, preparing meals, shopping, managing finances, etc.?: No Are you currently unemployed and looking for a job?: No Are you interested in more education?: No Please select the resources that you would like help with: None Currently or been in a relationship where the following occur: No concerns reported THRIVE Score: 0 AUDIT C Alcohol Use Questionnaire (AUDIT-C) 1. How often do you have a drink containing alcohol?: 2-3 times a week 2. How many drinks containing alcohol do you have on a typical day when you are drinking?: 1 or 2 3. How often do you have six or more drinks on one occasion?: Never Total Score: 3 ANN-7 AMB Questionnaire ANN-7 Date ANN - 7 assessed: 05/27/23 Feeling nervous, anxious, or on edge: 0 = Not at all Not being able to stop or control worryin = Not at all Worrying too much about different things: 0 = Not at all Trouble relaxin = Not at all Being so restless that it is hard to sit still: 0 = Not at all Becoming easily annoyed or irritable: 0 = Not at all Feeling afraid as if something awful might happen: 0 = Not at all Total ANN-7 score (0-4 normal; 5-9 mild; 10-14 moderate; 15-21 severe): 0 Source: Developed by Drs. Colten Lew, Velma Jeter, Skip Flores and colleagues, with an educational henry from [employer]. Review of Systems Const Details: Const Denies chills, Denies fatigue, Denies fever(s), Denies headache(s) and Denies weakness ENT Reports as per HPI Card Denies chest pain, Denies lightheadedness, Denies dyspnea and Denies other (Palpitations) Resp Reports cough, Denies dyspnea, Denies wheezing and Denies other ( shortness of breath) GI Denies abdominal pain, Denies melena, Denies hematochezia, Denies change in bowel habits, Denies dyspepsia and Denies nausea Denies hematuria and Denies dysuria Musc Denies abnormal gait, Denies myalgias, Denies arthralgias, Denies numbness and Denies tingling Skin/Breast Denies rash, Denies unusual bruising and Denies wounds Neuro Denies abnormal gait, Denies dizziness, Denies headache(s), Denies memory loss, Denies numbness, Denies Sensory deficit (Neuro), Denies tingling and Denies weakness Psych Denies anxiety, Denies depression, Denies memory loss Endo Denies cold intolerance, Denies fatigue, Denies heat intolerance, Denies polydipsia and Denies polyuria Aller/Immun Denies wheezing Physical exam (Primary Care) Vital Signs: Last Vital Signs Temp 98.2 F 05/13/24 13:49 Pulse 68 05/13/24 13:49 Resp 16 05/13/24 13:49 BP 100/70 05/13/24 13:49 Pulse Ox 98 05/13/24 13:49 Oxygen Delivery Method Room Air 05/13/24 13:49 BMI result Body Mass Index 26.2 Tobacco/Smoking Status: Tobacco use Status Tobacco use date assessed 05/13/24 05/13/24 13:52 Patient Tobacco Use Status Never used Tobacco 05/13/24 13:43 e-Cigarette/Vaping Use Never Used 05/13/24 13:43 PHQ-9: PHQ-9 Score PHQ-9: Total score 0 05/13/24 13:52 Depression Screening Interpretation: Negative Thrive Assessment: Date of Thrive Assessment Date Thrive assessed 05/27/23 05/13/24 13:43 Currently or been in a relationship where the following occur: No concerns reported Const Other: General: no acute distress and well developed Nutritional Appearance: well nourished Orientation/consciousness: patient oriented x3 HENMT Head is normocephalic Bilateral ear canal and TM are normal Nasal turbinates and oropharynx are pink and moist Sinuses are nontender with palpation No auricular or cervical lymphadenopathy Eyes General: appearance normal, both eyes and all related structures Pupils: Equal, round and reactive pupils present EOM: EOMs intact bilaterally Resp Effort & Inspection: normal respiratory effort Auscultation: clear to auscultation bilaterally Cardio Rate: regular rate Rhythm: regular rhythm Heart sounds: S1 normal heart sound present, S2 normal heart sound present, no gallops, no murmurs and no rubs GI Palpation (GI): No Abdominal aortic bruit present, Soft to palpation, nontender, No hepatosplenomegaly present and No Rebound tenderness present Auscultation: normal bowel sounds General: Yes no CVA tenderness Back/Spine/Pelvis Back: no CVA tenderness Extrem General: Yes normal to inspection, No edema and No calf tenderness Skin General: warm and dry. Normal skin color. Normal skin turgor Neuro General: patient oriented x3, gait normal and no focal neuro deficit Cranial nerves: Yes Equal, round and reactive pupils present Cognition (Neuro): normal cognition Gait exam (Neuro): Normal gait present Sensory Exam: No Sensory deficit (Neuro) Psych Appearance: grossly normal Affect: normal affect Attitude: cooperative Thought process: Normal thought process present Coding Level of Care Code Est Pt Level 3 (83935) Diagnoses Cough R05.9 Assessment & Plan Assessment & Plan (1) Cough: Code(s): R05.9 - Cough, unspecified Category: Medical Plan: Reports predominantly dry cough for the past 2 weeks. No wheezing, chest pain, or constitutional symptoms No exam evidence of bacterial infection Lung sounds clear bilaterally Likely viral illness though possibly allergies Viral illness There is no antibiotic medication for viruses.? They must run their course.? Most average 5-7 days but 7-10 days is not uncommon and up to 14 days is still possible.? A cough is often the last symptom to resolve and this can last for weeks in some cases. Rest Hydrate well -? Drink plenty of fluids.? Especially water. Tylenol or ibuprofen for muscle aches, headache, fever/discomfort Zyrtec as prescribed Cannot rule out COVID-19/RSV/Flu infection Nasal swab acquired and will be sent to the lab Chest x-ray ordered Orders: Orders SARS-CoV2/FLU/RSV Today R05.9 - Cough, unspecified XR chest 2V Today R05.9 - Cough, unspecified Medications: New cetirizine (Zyrtec) 10 mg PO DAILY 30 days 30 caps 1RF allergy symptoms Changed From albuterol sulfate 90 mcg/actuation (ProAir HFA) 2 puffs inhalation Q4-6H PRN 8.5 grams 4RF shortness of breath or wheezing 30 days To albuterol sulfate 90 mcg/actuation 2 puffs inhalation Q4-6H 30 days PRN 8.5 grams 1RF shortness of breath or wheezing
[2024-05-13 13:49] VITALS: BP 100/70; PULSE 68; RESP 16; TEMP 36.8; O2SAT 98; BMI 26.2
== END 2024-05-13 14:20 | disposition home or self-care (01) ==
LOC: HO.HMCFM 13:27
PROVIDERS: PCP Family Medicine; Visit Provider Nurse Practitioner Family
DX: R05.9 Cough, unspecified (principal)

== ENCOUNTER 2024-05-13 13:27 | Outpatient (REF) | payer BC, SELFPAY ==
[2024-05-13 18:51] LABS: Influenza A PCR NEGATIVE (Negative); Influenza B PCR NEGATIVE (Negative); Resp Syncy Virus RNA Qual PCR NEGATIVE (Negative); SARS COV2 PCR INHOUSE NEGATIVE (Negative)
== END 2024-05-13 13:28 | disposition home or self-care (01) ==
LOC: HO.LAB 13:27
PROVIDERS: PCP Family Medicine; Visit Provider Nurse Practitioner Family
DX: R05.9 Cough, unspecified (principal)
CPT/HCPCS: 0241U; 96127

== ENCOUNTER 2024-10-22 08:22 | Outpatient (REF) | payer BC, SELFPAY ==
--- OUTSIDE RECORDS SUMMARY | 2024-10-22 08:41 | XMS_ITS ---
Author Name [facility] Organization Unknown Care Team Organization Name Specialty Phone Email Start Date End [facility] [employer] [facility] 05/21/2024
== END 2024-10-22 08:23 | disposition home or self-care (01) ==
LOC: HO.MAMMO 08:22
PROVIDERS: PCP Family Medicine; Visit Provider Family Medicine
DX: Z12.31 Encounter for screening mammogram for malignant neoplasm of breast (principal)
CPT/HCPCS: 77063; 77067

== ENCOUNTER → 2024-10-22 08:45 | Outpatient (BNV) | payer BC, SELFPAY | PROVIDERS: PCP Family Medicine; Visit Provider Internal Medicine | DX: Z12.31 Encounter for screening mammogram for malignant neoplasm of breast (principal) | CPT/HCPCS: 77063; 77067 ==

== ENCOUNTER 2024-11-18 09:26 | Outpatient (AMB) | payer BC, SELFPAY ==
--- NOTE | 2024-11-18 09:43 | MHC.PC.OV ---
Vital Signs 11/18/24 09:48 Height 5 ft 4.5 in Weight 157 lb 2 oz BMI 26.6 BP 106/70 Blood Pressure Location Rt brachial Position Sitting Respiration 14 Pulse 74 Pulse Source Pulse Oximeter Temp 97.7 F Temp Source Oral Intake Visit Reasons: Anxiety / Medication request Intake Note: patient is scheduled for Anxiety/medication request patient is also experience hemorrhoids and needs something to alleviate discomfort. Allergies sulfabenzamide Allergy (Severe, Verified 11/18/24 09:45) Hives Medication List - Last Reconciled 11/18/24 by Ayden Woods MD albuterol sulfate 90 mcg/actuation 2 puffs inhalation Q4-6H PRN 30 days cetirizine (Zyrtec) 10 mg PO DAILY 30 days [Co Q-10 ] Tobacco use date assessed: 11/18/24 Dental Screening Dental Screen Date: 11/18/24 Did you have a dental visit in the last 12 months?: Yes Did you have a dental problem in the last 6 months where you did not have access to dental care?: No Was dental information given to patient?: No HPI Anxiety / Medication request HPI Details 39 y/o female presents today to discuss anxiety. Has complaints of hemorrhoids. She notes she had been using tylenol for the pain along with a hemorrhoid cream. PHQ-9 4, ANN-7 6 today. [facility] Medical History History of miscarriage Surgical History History of D&C History of bilateral breast reduction surgery Family History Brother Colon cancer Father Prostate cancer Social History Housing: House Patient Tobacco Use Status: Never used Tobacco e-Cigarette/Vaping Use: Never Used Second Hand Smoke Exposure: No service: No Current occupational status: employed Current occupation: [employer] services Current occupational exposures/hazards: No Cognitive needs: No Hearing needs: No Vision needs: No Questionnaire PHQ-9 Over the last 2 weeks, how often have you been bothered by any of the following problems? 1. Little interest or pleasure in doing things: several days 2. Feeling down, depressed, or hopeless: several days 3. Trouble falling or staying asleep, or sleeping too much: several days 4. Feeling tired or having little energy: several days 5. Poor appetite or overeating: not at all 6. Feeling bad about yourself - or that you are a failure or have let yourself or your family down: not at all 7. Trouble concentrating on things, such as reading the newspaper or watching television: not at all 8. Moving or speaking so slowly that other people could have noticed. Or the opposite - being so fidgety or restless that you have been moving around a lot more than usual: not at all 9. Thoughts that you would be better off or of hurting yourself in some way: not at all Total score: 4 Depression Screening Interpretation: Negative Depression Screening Done: Yes 30277 - PHQ-9 Billing: Yes Source: Developed by Drs. Colten Lew, Velma Jeter, Skip Flores and colleagues, with an educational henry from [employer]. Thrive Questionnaire Date Thrive assessed: 11/18/24 I am a: Patient What is your living situation today?: I have a steady place to live Within the past 12 months, did the food you bought not last and you didn't have the money to get more?: Never true Within the past 12 months, did you worry whether your food would run out before you got money to buy more?: Never true Do you have trouble paying for medicines?: No Do you have trouble getting transportation to medical appointments?: No Do you have trouble paying your heating and electricity bill?: No Do you have trouble taking care of your child, family member or friend?: No Do you have trouble with day-to-day activities such as bathing, preparing meals, shopping, managing finances, etc.?: No Are you currently unemployed and looking for a job?: No Are you interested in more education?: No Please select the resources that you would like help with: None Currently or been in a relationship where the following occur: No concerns reported THRIVE Score: 0 AUDIT C Alcohol Use Questionnaire (AUDIT-C) 1. How often do you have a drink containing alcohol?: 4 or more times a week 2. How many drinks containing alcohol do you have on a typical day when you are drinking?: 1 or 2 3. How often do you have six or more drinks on one occasion?: Never Total Score: 4 ANN-7 AMB Questionnaire ANN-7 Date ANN - 7 assessed: 05/27/23 Feeling nervous, anxious, or on edge: 1 = Several days Not being able to stop or control worryin = Several days Worrying too much about different things: 1 = Several days Trouble relaxin = Several days Being so restless that it is hard to sit still: 1 = Several days Becoming easily annoyed or irritable: 0 = Not at all Feeling afraid as if something awful might happen: 1 = Several days Total ANN-7 score (0-4 normal; 5-9 mild; 10-14 moderate; 15-21 severe): 6 Source: Developed by Drs. Colten Lew, Velma Jeter, Skip Flores and colleagues, with an educational henry from [employer]. ANN-7 Assessment Billing ANN-7 Assessment Tool: ANN-7 Assessment 92349 Review of Systems Const Denies chills, Denies fatigue, Denies fever(s), Denies headache(s) and Denies weakness ENT Denies dizziness and Denies headache(s) Card Denies dyspnea Resp Denies cough, Denies dyspnea, Denies wheezing and Denies other (shortness of breath) Musc Denies numbness and Denies tingling Neuro Denies dizziness, Denies headache(s), Denies numbness, Denies tingling and Denies weakness Psych Reports anxiety and Denies depression Endo Denies fatigue Aller/Immun Denies wheezing Physical exam (Primary Care) Vital Signs: Last Vital Signs Temp 97.7 F 11/18/24 09:48 Pulse 74 11/18/24 09:48 Resp 14 11/18/24 09:48 BP 106/70 11/18/24 09:48 BMI result Body Mass Index 26.6 Tobacco/Smoking Status: Tobacco use Status Tobacco use date assessed 11/18/24 11/18/24 09:51 Patient Tobacco Use Status Never used Tobacco 11/18/24 09:44 e-Cigarette/Vaping Use Never Used 11/18/24 09:44 PHQ-9: PHQ-9 Score PHQ-9: Total score 4 11/18/24 09:52 Depression Screening Interpretation: Negative Thrive Assessment: Date of Thrive Assessment Date Thrive assessed 11/18/24 11/18/24 09:51 Currently or been in a relationship where the following occur: No concerns reported Const General: well developed; No acute distress Nutritional Appearance: well nourished Orientation/consciousness: patient oriented x3 HENMT Head: Yes normocephalic and Yes atraumatic Eyes General: appearance normal, both eyes and all related structures Pupils: Equal, round and reactive pupils present EOM: EOMs intact bilaterally Resp Effort & Inspection: normal respiratory effort Neuro General: patient oriented x3 and gait normal Cranial nerves: Yes Equal, round and reactive pupils present Psych Affect: normal affect Coding Level of Care Code Est Pt Level 3 (93543) Diagnoses Anxiety F41.9 Hemorrhoids K64.9 Additional Codes ANN-7 Assessment Billing - ANN-7 Assessment Tool: ANN-7 Assessment [id number] ([id number]) PHQ-9 - 24393 - PHQ-9 Billing: Yes ([id number]) Assessment & Plan Assessment & Plan (1) Anxiety: Code(s): F41.9 - Anxiety disorder, unspecified Category: Medical Plan: Significant?anxiety?and?likely?depression?due?to?stressors; particularly?multiple?miscarriages. Patient?is?still?trying?to?get??but?would?like?to?try?sertraline. We?discussed?that?if?she?does?become??she?should?discontinue?the?medication?and?she?agrees. She?has?had?a?therapist?in?past?and?declines?this?for?now.??She?can?let?me?know?if?she?changes?her?mind. (2) Hemorrhoids: Code(s): K64.9 - Unspecified hemorrhoids Category: Medical Plan: Keep?stools?soft Hydrate?well?and?use?MiraLax?and?needed She?can?continue?using?tucks?pads?and?I?have?given?her?a?script?for?Anusol If?not?improving?may?need?referral Orders: Orders Complete Blood Count Auto Diff Today Z00.00 - Encounter for general adult medical examination without abnormal findings TSH reflex Free T4 Today Z00.00 - Encounter for general adult medical examination without abnormal findings Comprehensive [place]. Panel Fast Today Z00.00 - Encounter for general adult medical examination without abnormal findings Microalbumin, Random (w Creat) Today I10 - Essential (primary) hypertension Lipid Panel Today Z00.00 - Encounter for general adult medical examination without abnormal findings UA CC w/rflx Micro + Cult Today Z00.00 - Encounter for general adult medical examination without abnormal findings Medications: New hydrocortisone 2.5% (Anusol-HC) 1 appl ND BID-QID 14 days PRN 30 grams 1RF hemorrhoids polyethylene glycol 3350 (Miralax) 17 grams PO DAILY 14 days 238 grams 1RF sertraline 50 mg PO DAILY 30 days 30 tabs 2RF
[2024-11-18 09:48] VITALS: BP 106/70; PULSE 74; RESP 14; TEMP 36.5; BMI 26.6
== END 2024-11-18 10:47 | disposition home or self-care (01) ==
LOC: HO.HMCFM 09:27
PROVIDERS: PCP Family Medicine; Visit Provider Family Medicine
DX: F41.9 Anxiety disorder, unspecified (principal); K64.9 Unspecified hemorrhoids

== ENCOUNTER → 2024-11-18 09:26 | Outpatient (BNVA) | payer BC, SELFPAY | PROVIDERS: PCP Family Medicine; Visit Provider Family Medicine ==

== ENCOUNTER 2024-11-18 10:38 | Outpatient (REF) | payer BC, SELFPAY ==
[2024-11-18 14:20] LABS: MANUAL DIFF FLAG NO
[2024-11-18 14:28] LABS: Basophils Percent Auto 0.3 % (0-2); Eosinophils Absolute Auto 0.1 X10*3/uL (0.0-0.4); Eosinophils Percent Auto 1.8 % (0-4); Hematocrit 43.8 % (37.0-47.0); Hemoglobin 14.4 g/dl (12.0-16.0); Imm Gran Abs Auto 0.01 X10*3/uL (0.00-0.03); Imm Gran Pct Auto 0.1 % (0.0-0.4); Lymphocytes Absolute Auto 1.9 X10*3/uL (1.2-4.9); Lymphocytes Percent Auto 27.7 % (20-40); Mean Corpuscular HGB Conc 32.9 g/dl (31.0-35.0); Mean Corpuscular Hemoglobin 30.7 pg (27.0-33.0); Mean Corpuscular Volume 93.4 fL (80.0-98.0); Mean Platelet Volume 11.1 fL (9.4-12.3); Monocytes Absolute Auto 0.4 X10*3/uL (0.1-1.2); Monocytes Percent Auto 6.1 % (2-11); Neutrophils Absolute Auto 4.3 x10*3/uL (2.0-8.3); Platelet Count 256 X10*3/uL (160-400); Red Blood Count 4.69 X10*6/uL (4.20-5.50); Red Cell Distribution Width 12.8 % (11.0-16.0); White Blood Count 6.7 X10*3/uL (4.8-10.8)
[2024-11-18 14:34] LABS: Appearance Urine Clear; Color Urine Yellow; Glucose Urine UA Negative (Negative); Leukocyte Esterase Urine Small (1+) (Negative); Nitrite Urine Negative (Negative); Specific Gravity - Urine 1.025 (1.005-1.025); UMIC TRIGGER UACC YES; Urine Blood Negative (Negative); Urine Ketones Negative (Negative); Urine Protein Negative (Neg-Trace)
[2024-11-18 14:38] LABS: Bacteria Urine None Seen (None Seen); Hyaline Casts Urine 0-2 /LPF (0-2); RBC Urine 0-2 /HPF (0-2); UACC Culture Trigger YES
[2024-11-18 15:02] LABS: Alanine Aminotransferase 17 U/L (0-31); Albumin Level 4.4 g/dL (3.5-5.0); Anion Gap 12 (12-20); Aspartate Amino Transferase 22 U/L (5-31); Bilirubin Total 0.8 mg/dL (0.0-1.0); Blood Urea Nitrogen 15 mg/dL (9-16); Calcium 9.3 mg/dL (8.4-10.2); Carbon Dioxide 24 mmol/L (22-29); Chloride 108 mmol/L (96-108); Cholesterol 198 mg/dL (<200); Estimated Glomerular Filt Rate > 60; Glucose Fasting 79 mg/dL (60-99); HDL Cholesterol 84 mg/dL (>40); LDL Cholesterol Calculated 100 mg/dL (<100); Potassium 4.4 mmol/L (3.3-5.1); Sodium 140 mmol/L (135-145); TSH reflex Free T4 1.27 uIU/mL (0.32-4.0); Total Protein 6.8 g/dL (6.5-8.0); Triglycerides 73 mg/dL (<150)
[2024-11-18 15:11] LABS: Creatinine Urine 74.58 mg/dL; Microalbumin Urine < 5.0 mg/L
[2024-11-18 15:53] LABS: Alkaline Phosphatase 51 U/L (39-117)
== END 2024-11-18 10:39 | disposition home or self-care (01) ==
LOC: HO.WFDLDS 10:38
PROVIDERS: Visit Provider Family Medicine
DX: F41.9 Anxiety disorder, unspecified (principal); K64.9 Unspecified hemorrhoids; Z00.00 Encounter for general adult medical examination without abnormal findings; I10 Essential (primary) hypertension
CPT/HCPCS: 36415; 80053; 80061; 81001; 82043; 82570; 84443; 85025; 87086; 96127